=== PATIENT | male | born 2000 | race Caucasian/White ===

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

== ENCOUNTER 2022-02-04 05:46 | Emergency (ER) | payer OTHER ==
[~2022-02-04] VITALS: Ht 182.8 cm; Wt 154.2 kg
[~2022-02-04 05:46] MED LIST changes: +HYDR-4226 PO; +IBUP-1780 PO; +SULF1TAB38 PO; +TMSL.4C PO
--- NOTE | 2022-02-04 06:10 | ED Integumentary General ---
General Stated Complaint: ATTACKED BY DOG,FACE & RT ARM Source: patient Exam Limitations: no limitations (NIXON STARK) History of Present Illness Date Seen by Provider: February 04, 2022 Time Seen by Provider: 06:02 Initial Comments The patient presents to the ER by private conveyance from home with chief complaint that just prior to arrival he had his face and the back of his right arm bit by a neighbors dog. The neighbors dogs recently had puppies and one of them escaped into his yard and he was returning it to the neighbors yard when the male dog attacked him biting him several times on the right side of his face just narrowly missing his eye. He also has some superficial abrasions from bites on the back of his right arm proximally. He has not had a tetanus vaccine. He has not contacted law enforcement or animal control. He has never had rabies vaccination. (NIXON STARK) Allergies and Home Medications Allergies Uncoded Allergies: TRIMOX (Allergy, Mild, 04/25/09) Patient Home Medication List Home Medication List Reviewed: Yes (NIXON STARK) Hydrocodone/Acetaminophen (Hydrocodone/Acetaminophen 5 MG/325 MG TAB) 1 Each Tablet, 1 EACH PO Q4H PRN for PAIN-MODERATE Prescribed by: LEONARDA LUNA on 09/13/172021 Ibuprofen (Ibuprofen) 800 Mg Tablet, 800 MG PO Q8H PRN for PAIN Prescribed by: LEONARDA LUNA on 09/13/172021 Levofloxacin (Levofloxacin) 500 Mg Tablet, 500 MG PO DAILY Prescribed by: FLYNN GAYTAN on 02/04/22 0739 Naproxen (Naprosyn) 500 Mg Tablet, 1 EACH PO TID PRN Prescribed by: AVTAR VILLA on 04/15/12 0223 Sulfamethoxazole/Trimethoprim (Bactrim Ds Tablet) 1 Each Tablet, 1 EACH PO BID Prescribed by: LEONARDA LUNA on 09/13/172021 Tamsulosin HCl (Flomax) 0.4 Mg Cap, 0.4 MG PO DAILY Prescribed by: LEONARDA LUNA on 09/13/172021 Review of Systems Review of Systems Constitutional: No chills, No diaphoresis EENTM: No ear discharge, No eye pain Respiratory: No cough, No short of breath Cardiovascular: No edema, No palpitations Gastrointestinal: No abdominal pain, No diarrhea, No nausea Genitourinary: No discharge, No dysuria Musculoskeletal: No back pain, No joint pain Skin: see HPI (NIXON STARK) All Other Systems Reviewed Negative Unless Noted: Yes (NIXON STARK) Past Cwonyuv-Ybyuzf-Tbbmql Hx Patient Social History Tobacco Use?: No Use of E-Cig and/or Vaping dev: No (NIXON STARK) Seasonal Allergies Seasonal Allergies: No (NIXON STARK) Past Medical History Surgeries: Yes Tonsillectomy Respiratory: No Cardiac: No Neurological: No Genitourinary: No Gastrointestinal: No Musculoskeletal: No Endocrine: No HEENT: No Cancer: No Psychosocial: No Integumentary: No Blood Disorders: No (NIXON STARK) Physical Exam Vital Signs Vital Signs - First Documented 02/04/22 06:00 Temp 37.1 Pulse 82 B/P (MAP) 138/68 (91) Pulse Ox 98 O2 Delivery Room Air (FLYNN GAYTAN MD) Vital Signs Capillary Refill : (NIXON STARK) General Appearance: WD/WN, no apparent distress HEENT: PERRL/EOMI, normal ENT inspection, TMs normal, pharynx normal Neck: non-tender, full range of motion, supple, normal inspection Cardiovascular: normal peripheral pulses, regular rate, rhythm Respiratory: no respiratory distress, no accessory muscle use Gastrointestinal: non tender, soft Extremities: normal range of motion, normal capillary refill Neurologic/Psychiatric: 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, no motor/sensory deficits, alert, normal mood/affect, oriented x 3 Skin: normal color, warm/dry, other (Several small superficial curvilinear lacerations on the right forehead right cheeks and right jaw) (NIXON STARK) Procedures/Interventions Wound Location: Face Other Wound Location Above right brow Wound Length (cm): 3 Wound's Depth, Shape: irregular Wound Explored: contaminated Irrigated w/ Saline (ccs): 100 Betadine Prep?: Yes Anesthesia: 1% Lidocaine Volume Anesthetic (ccs): 3 Suture: Ethlion Suture Size: 5-0 Number of Sutures: 7 Layer Closure?: 1 Number Deep Layer Sutures: 0 Progress Wound closed with simple interrupted sutures loosely with good approximation due to concerns about infection after dog bite. Cover with antibiotic ointment. Achieved hemostasis. Tolerated procedure well with no complications. Wound Location: Face Other Wound Location Right upper eyelid Wound Length (cm): 2 Wound's Depth, Shape: superficial Wound Explored: contaminated Irrigated w/ Saline (ccs): 50 Betadine Prep?: Yes Anesthesia: 1% Lidocaine Volume Anesthetic (ccs): 2 Wound Debrided: minimal Suture: Ethlion Suture Size: 5-0 Number of Sutures: 3 Layer Closure?: 1 Number Deep Layer Sutures: 0 Progress Eyelid looks like closed but with good approximation and excellent hemostasis with 2 simple interrupted sutures. I also did add 1 suture to wound on cheek after cleaning with saline and Hibiclens and flushing and then anesthetizing with lidocaine 1% 1 mL to the wound. 1 suture closed wound well with good approximation and good hemostasis. All wounds to face covered with antibiotic ointment. Patient tolerated procedure well with no complication. (FLYNN GAYTAN MD) Progress/Results/Core Measures Results/Orders My Orders Orders - FLYNN GAYTAN MD Lidocaine 1% Inj 20 Ml (Xylocaine 1% Inj (02/04/22 07:00) (FLYNN GAYTAN MD) Medications Given in ED Current Medications Medications Dose Ordered Sig/Jaida Route Start Time Stop Time Status Last Admin Dose Admin Cephalexin HCl 500 mg ONCE ONCE PO 02/04/22 06:15 02/04/22 06:16 DC 02/04/22 06:11 500 MG Diphtheria/ Tetanus/Acell Pertussis 0.5 ml ONCE ONCE IM 02/04/22 06:15 02/04/22 06:16 DC 02/04/22 06:13 0.5 ML Lidocaine HCl 20 ml ONCE ONCE INJ 02/04/22 07:00 02/04/22 07:01 DC 02/04/22 07:01 20 ML (FLYNN GAYTAN MD) Vital Signs/I&O 02/04/22 06:00 Temp 37.1 Pulse 82 B/P (MAP) 138/68 (91) Pulse Ox 98 O2 Delivery Room Air (FLYNN GAYTAN MD) Progress Progress Note : Time: 06:34 Progress Note Tdap, clean the wounds with chlorhexidine and sterile saline, dry gauze dressing. Several of them will need stitched. Care of the patient transferred to Dr. GAYTNA at shift change. Recommended animal control get involved to the patient. He said he would call them. Made recommendations with the and will be observed for 10 days and if it is doing well then he does not need to return to the ER but if it is having any concerning features he would need to promptly return to the ER for vaccination and rabies IgG. Impressed upon him the terminal nature of rabies. (NIXON STARK) Progress Note : Progress Note I did assume care of the patient from Dr. Stark. We will proceed with closure of wound. 0736: Wound is closed with simple interrupted sutures and a loose but with good approximation fashion. Covered with antibiotic ointment. Tolerated procedures well with no complications. Discharged home with return precautions. Patient verbalized understanding instructions and agreement with plan. Patient did receive cephalexin on from previous provider. We will go ahead and switch that to Levaquin as outpatient. (FLYNN GAYTAN MD) Departure Impression Primary Impression: Dog bite Qualified Codes: W54.0XXA - Bitten by dog, initial encounter Additional Impression: Laceration of face, multiple sites Disposition: HOME, SELF-CARE Condition: Improved Departure-Patient Inst. Decision time for Depature: 07:37 (FLYNN GAYTAN MD) Referrals: [facility] [place] (PCP) Primary Care Physician MOLLY HERNANDEZ (Family) Primary Care Physician Patient Instructions: Laceration Repair With Stitches (DC), Animal Bites (DC) Add. Discharge Instructions: Sutures out in 4 to 5 days. Take antibiotics as directed. Return for worse pain, fever, swelling, redness, foul-smelling drainage from wounds or other concerns as needed. You may take ibuprofen 600 mg every 8 hours as needed for pain. You may take Tylenol/acetaminophen 1000 mg every 8 hours as needed for pain. You may use ice packs to area of concern to reduce swelling and pain 20 minutes/h over the next 1 to 2 days. Scripts Levofloxacin (Levofloxacin) 500 Mg Tablet 500 MG PO DAILY, #6 TAB 0 Refills Prov: FLYNN GAYTAN MD 02/04/22 NIXON STARK February 04, 2022 06:10 FLYNN GAYTAN MD February 04, 2022 07:38
[2022-02-04] MEDS ORDERED: TETANUS,DIPTH,PERTUSS P/F (BOOSTRIX) 0.5 ML VIAL IM ONE (06:15)
[2022-02-04] MEDS ORDERED: CEPHALEXIN 250 MG (KEFLEX) CAP PO ONE (06:15)
[2022-02-04] MEDS ORDERED: LIDOCAINE 1% INJ 20 ML VIAL INJ ONE (07:00)
[2022-02-04] MEDS ORDERED: LEVO500T81 PO (07:39)
[2022-02-04 08:02] VITALS: BP 125/83
== END 2022-02-04 08:02 | disposition home or self-care (01) ==
LOC: EDUNIT# 05:46 → ER 05:53
DX: S01.85XA Open bite of other part of head, initial encounter (principal); W54.0XXA Bitten by dog, initial encounter
CPT/HCPCS: 90715

== ENCOUNTER 2022-02-08 16:40 | Emergency (ER) | payer OTHER ==
[~2022-02-08] VITALS: Ht 182 cm; Wt 154.2 kg
[~2022-02-08 16:40] MED LIST changes: +LEVO500T81 PO
[2022-02-08 17:00] VITALS: BP 120/87
== END 2022-02-08 17:00 | disposition home or self-care (01) ==
LOC: EDUNIT# 16:40 → ER 16:41
DX: Z48.02 Encounter for removal of sutures (principal)